=== PATIENT | female | born 1940 | race Hispanic/Latino ===

== ENCOUNTER 2019-09-08 02:13 | Emergency (ER) | payer MEDICARE ==
[2019-09-08] MEDS ORDERED: traMADol 50 MG TAB PO ONE (02:40)
[2019-09-08 03:03] LABS: Basophils % (Auto) 0.5 % (0.0-1.8); Eosinophils # (Auto) 0.1 K/mm3 (0.0-0.4); Eosinophils % (Auto) 1.6 % (0.0-4.3); Hematocrit 42.2 % (30.3-42.9); Hemoglobin 14.1 gm/dl (10.1-14.3); Mean Corpuscular HGB Conc 33 % (30-34); Mean Corpuscular Volume 89 fl (79-97); Monocytes # (Auto) 0.6 K/mm3 (0.0-0.8); Monocytes % (Auto) 7.2 % (0.0-7.3); Platelet Count 208 K/mm3 (140-440); Red Blood Count 4.75 M/mm3 (3.65-5.03); Red Cell Distribution Width 14.5 % (13.2-15.2)
[2019-09-08 03:28] LABS: Alanine Aminotransferase 12 units/L (7-56); BUN/Creatinine Ratio 21; Blood Urea Nitrogen 17 mg/dL (7-17); Hemolysis Index 15
--- NOTE | 2019-09-08 03:31 | Emergency Department Report ---
<JAMES QUINTERO - Last Filed: 09/08/19 03:55> ED General Adult HPI - General Chief complaint: Extremity Injury, Upper Stated complaint: LEFT ARM PAIN Time Seen by Provider: 09/08/19 02:19 Source: patient Mode of arrival: Ambulatory Limitations: No Limitations - History of Present Illness Initial comments: She does a 79-year-old female presents emergency room with complaints of chronic left shoulder pain that began bothering her tonight. She states she has a history of peripheral neuropathy and usually has pain in her left arm and her left leg chronically per pt. She denies any fall or injury. She denies any numbness or weakness. Patient does not report any chest pain, shortness of breath, palpitations, nausea, vomiting, fever, chills, abdominal pain, any other symptoms. She states she has a past medical history of diabetes and hypertension. She states that she takes glipizide for her diabetes. She is not sure what she takes for hypertension. She states in 2018 she had a stress test which was normal. - Related Data Previous Rx's Medication Instructions Recorded Last Taken Type Acetaminophen [Acetaminophen 8 650 mg PO Q8HR PRN #14 tablet.er 09/08/19 Unknown Rx Hour] Ciprofloxacin HCl [Ciprofloxacin 500 mg PO Q12HR #20 tab 09/08/19 Unknown Rx TAB] traMADoL [Ultram 50 MG tab] 50 mg PO Q6HR PRN #7 tablet 09/08/19 Unknown Rx Allergies Allergy/AdvReac Type Severity Reaction Status Date / Time Unable to Assess Allergy Unverified 09/08/19 02:45 ED Review of Systems Comment: All other systems reviewed and negative ED Past Medical Hx - Past Medical History Previous Medical History?: Yes Hx Diabetes: Yes Additional medical history: peripheral neuropathy - Surgical History Past Surgical History?: Yes Additional Surgical History: tonsillectomy(childhood) - Social History Smoking Status: Never Smoker Substance Use Type: None - Medications Home Medications: Home Medications Medication Instructions Recorded Confirmed Last Taken Type Acetaminophen [Acetaminophen 8 650 mg PO Q8HR PRN #14 tablet.er 09/08/19 Unknown Rx Hour] Ciprofloxacin HCl [Ciprofloxacin 500 mg PO Q12HR #20 tab 09/08/19 Unknown Rx TAB] traMADoL [Ultram 50 MG tab] 50 mg PO Q6HR PRN #7 tablet 09/08/19 Unknown Rx ED Physical Exam - General Limitations: No Limitations General appearance: alert, in no apparent distress - Head Head exam: Present: atraumatic, normocephalic - Eye Eye exam: Present: normal appearance - ENT ENT exam: Present: mucous membranes moist - Respiratory Respiratory exam: Present: normal lung sounds bilaterally. Absent: respiratory distress, wheezes, rales, rhonchi, stridor, chest wall tenderness, accessory muscle use, decreased breath sounds, prolonged expiratory - Cardiovascular Cardiovascular Exam: Present: regular rate, normal rhythm, normal heart sounds. Absent: systolic murmur, diastolic murmur, rubs, gallop - Extremities Exam Extremities exam: Present: other (no bony TTP of the LUE, FROM of the left fingers, wrist, elbow, slightly decreased ROM Of the left shoulder, mild discomfort upon flexion of the left shoulder, 2+ radial pulse, sensation intact) - Neurological Exam Neurological exam: Present: alert, oriented X3 - Psychiatric Psychiatric exam: Present: normal affect, normal mood - Skin Skin exam: Present: warm, dry, intact ED Medical Decision Making - Lab Data Result diagrams: 09/08/19 02:51 09/08/19 02:51 ED Disposition Clinical Impression: Chronic left shoulder pain, Acute cystitis Peripheral neuropathy Qualifiers: Peripheral neuropathy type: polyneuropathy, unspecified Qualified Code(s): G62.9 - Polyneuropathy, unspecified Disposition: DC-01 TO HOME OR SELFCARE Is pt being admited?: No Does the pt Need Aspirin: No Condition: Stable Instructions: Peripheral Neuropathy (ED), Arthralgia (ED), Urinary Tract Infection in Women (ED) Additional Instructions: Please take medication as prescribed as needed. Do not drive or operate [employer] while taking pain medication. Please follow-up with a primary care doctor in the next 2-3 days for reevaluation. Return to the emergency room for any new or worsening symptoms. Please take your blood pressure medication as you are prescribed by your doctor. Please keep a blood pressure log and take your blood pressure 3 times a day and take this to your primary care doctor. Eat a low sodium diet. Increase your water intake. Prescriptions: Acetaminophen [Acetaminophen 8 Hour] 650 mg PO Q8HR PRN #14 tablet.er PRN Reason: Pain, Moderate (4-6) Ciprofloxacin HCl [Ciprofloxacin TAB] 500 mg PO Q12HR #20 tab traMADoL [Ultram 50 MG tab] 50 mg PO Q6HR PRN #7 tablet PRN Reason: Pain , Severe (7-10) Referrals: DONNA HEBERT MD [Staff Physician] - 2-3 Days BETTYE PEDERSEN MD [Staff Physician] - 2-3 Days CRIS THOMAS MD [Staff Physician] - 2-3 Days [facility] [Provider Group] - 2-3 Days Time of Disposition: 03:57 Print Language: THAI <CHYNA VANEGAS - Last Filed: 09/08/19 04:24> ED Review of Systems ROS: Stated complaint: LEFT ARM PAIN Other details as noted in HPI ED Course Vital Signs 09/08/19 09/08/19 02:45 04:21 Temperature 98.2 F Pulse Rate 82 Respiratory 18 18 Rate Blood Pressure 156/129 O2 Sat by Pulse 100 Oximetry - Reevaluation(s) Reevaluation #1: 09/08/19 04:23 Patient had a urinalysis ordered secondary to a very strong smelling urine. Patient does have evidence of a UTI and has a wbc's nitrites and leuk esterase present. Patient started on Cipro for 10 days. ED Medical Decision Making - Lab Data Result diagrams: 09/08/19 02:51 09/08/19 02:51 Lab Results 09/08/19 09/08/19 09/08/19 Range/Units 02:51 02:51 03:39 WBC 8.6 (4.5-11.0) K/mm3 RBC 4.75 (3.65-5.03) M/mm3 Hgb 14.1 (10.1-14.3) gm/dl Hct 42.2 (30.3-42.9) % MCV 89 (79-97) fl MCH 30 (28-32) pg MCHC 33 (30-34) % RDW 14.5 (13.2-15.2) % Plt Count 208 (140-440) K/mm3 Lymph % (Auto) 23.0 (13.4-35.0) % [place] % (Auto) 7.2 (0.0-7.3) % Eos % (Auto) 1.6 (0.0-4.3) % Baso % (Auto) 0.5 (0.0-1.8) % Lymph # 2.0 (1.2-5.4) K/mm3 [place] # 0.6 (0.0-0.8) K/mm3 Eos # 0.1 (0.0-0.4) K/mm3 Baso # 0.0 (0.0-0.1) K/mm3 Seg Neutrophils % 67.7 (40.0-70.0) % Seg Neutrophils # 5.8 (1.8-7.7) K/mm3 Sodium 143 (137-145) mmol/L Potassium 3.9 (3.6-5.0) mmol/L Chloride 102.7 (98-107) mmol/L Carbon Dioxide 27 (22-30) mmol/L Anion Gap 17 mmol/L BUN 17 (7-17) mg/dL Creatinine 0.8 (0.7-1.2) mg/dL Estimated GFR > 60 ml/min BUN/Creatinine Ratio 21 % Glucose 159 H (65-100) mg/dL Calcium 9.0 (8.4-10.2) mg/dL Phosphorus 4.20 (2.5-4.5) mg/dL Magnesium 2.00 (1.7-2.3) mg/dL Total Bilirubin < 0.20 (0.1-1.2) mg/dL AST 16 (5-40) units/L ALT 12 (7-56) units/L Alkaline Phosphatase 85 (35-129) units/L Total Creatine Kinase 69 (30-135) units/L Total Protein 6.8 (6.3-8.2) g/dL Albumin 4.0 (3.9-5) g/dL Albumin/Globulin Ratio 1.4 % Urine Color Yellow (Yellow) Urine Turbidity Slightly-cloudy (Clear) Urine pH 5.0 (5.0-7.0) Ur Specific [place] 1.023 (1.003-1.030) Urine Protein <15 mg/dl (Negative) mg/dL Urine Glucose (UA) 50 (Negative) mg/dL Urine Ketones Neg (Negative) mg/dL Urine Blood Neg (Negative) Urine Nitrite Pos (Negative) Urine Bilirubin Neg (Negative) Urine Urobilinogen < 2.0 (<2.0) mg/dL Ur Leukocyte Esterase Mod (Negative) Urine WBC (Auto) 36.0 H (0.0-6.0) /HPF Urine RBC (Auto) 4.0 (0.0-6.0) /HPF U Epithel Cells (Auto) 4.0 (0-13.0) /HPF Urine Bacteria (Auto) 2+ (Negative) /HPF Urine Mucus 3+ /HPF Urine Yeast (Budding) 1+ /HPF Urine Sperm 1+ (INTELLIGENCE CLERK) /HPF Critical care attestation.: If time is entered above; I have spent that time in minutes in the direct care of this critically ill patient, excluding procedure time. ED Disposition Is pt being admited?: No Does the pt Need Aspirin: No
[2019-09-08 03:58] LABS: Bacteria,Urine 2+ /HPF (Negative); Bilirubin,Urine NEG (Negative); Blood,Urine NEG (Negative); Color,Urine Yellow (Yellow); Mucus,Urine 3+ /HPF; Protein,Urine <15 mg/dL mg/dL (Negative); Sperm,Urine 1+ /HPF (NP); Urobilinogen,Urine < 2.0 mg/dL (<2.0)
[2019-09-08 13:40] VITALS: BP 142/89
== END 2019-09-08 13:00 | disposition home or self-care (01) ==
LOC: ED 02:13
DX: M25.512 Pain in left shoulder (principal); G89.29 Other chronic pain; N30.00 Acute cystitis without hematuria; G62.9 Polyneuropathy, unspecified; E11.9 Type 2 diabetes mellitus without complications; Z90.89 Acquired absence of other organs; Z79.899 Other long term (current) drug therapy
CPT/HCPCS: 36415; 80053; 81001; 82550; 83735; 84100; 85025; 87086